=== PATIENT | female | born 1985 | race Caucasian/White ===

== ENCOUNTER 2018-12-27 17:24 | Emergency (ER) | payer OTHER, MEDICAID ==
[~2018-12-27] VITALS: Ht 167.6 cm; Wt 91.8 kg
[2018-12-27 18:01] VITALS: Ht 167.6 cm; Wt 91.8 kg
[2018-12-27 20:07] VITALS: BP 124/92
== END 2018-12-27 20:07 | disposition home or self-care (01) ==
LOC: ED 17:24
DX: F41.9 Anxiety disorder, unspecified (principal); R07.89 Other chest pain; R06.02 Shortness of breath; F32.9 Major depressive disorder, single episode, unspecified
CPT/HCPCS: J2060

== ENCOUNTER 2019-02-01 15:03 | Emergency (ER) | payer OTHER, MEDICAID ==
[~2019-02-01] VITALS: Ht 165.1 cm; Wt 95.3 kg
[2019-02-01 15:05] VITALS: Ht 165.1 cm; Wt 95.3 kg
[2019-02-01 18:58] VITALS: BP 135/64
== END 2019-02-01 18:58 | disposition home or self-care (01) ==
LOC: ED 15:03
DX: F07.81 Postconcussional syndrome (principal); S80.01XA Contusion of right knee, initial encounter; V48.6XXA Car passenger injured in noncollision transport accident in traffic accident, initial encounter; Y93.89 Activity, other specified; Y92.89 Other specified places as the place of occurrence of the external cause; Y99.8 Other external cause status; F41.9 Anxiety disorder, unspecified; F32.9 Major depressive disorder, single episode, unspecified

== ENCOUNTER 2019-12-19 13:53 | Emergency (ER) | payer OTHER, MEDICAID ==
[~2019-12-19] VITALS: Ht 165.1 cm; Wt 103.4 kg
[2019-12-19 13:56] VITALS: Ht 165.1 cm; Wt 103.4 kg
[2019-12-19 15:29] VITALS: BP 131/90
== END 2019-12-19 15:29 | disposition home or self-care (01) ==
LOC: ED 13:53
DX: K52.9 Noninfective gastroenteritis and colitis, unspecified (principal); Z20.828 Contact with and (suspected) exposure to other viral communicable diseases
CPT/HCPCS: U0003-CS

== ENCOUNTER 2020-02-02 13:27 | Emergency (ER) | payer OTHER, MEDICAID ==
[~2020-02-02] VITALS: Ht 167.6 cm; Wt 100.7 kg
[2020-02-02 13:41] VITALS: Ht 167.6 cm; Wt 100.7 kg
[2020-02-02 18:33] VITALS: BP 122/78
== END 2020-02-02 18:33 | disposition home or self-care (01) ==
LOC: ED 13:27
DX: M54.10 Radiculopathy, site unspecified (principal); M54.30 Sciatica, unspecified side